=== PATIENT | female | born 1985 | race Two or more races ===

== ENCOUNTER 2019-06-16 12:04 | Outpatient (CLI) | payer MEDICAID ==
[~2019-06-16] VITALS: Ht 154.9 cm; Wt 98.0 kg
== END 2019-06-16 13:14 | disposition home or self-care (01) ==
LOC: LDOP 12:04
PROVIDERS: ATTEND Student in an Organized Health Care Education/Training Program
DX: O13.3 Gestational [pregnancy-induced] hypertension without significant proteinuria, third trimester (principal); Z3A.38 38 weeks gestation of pregnancy
CPT/HCPCS: 36415; 59025; 80053; 81001; 82570; 84156; 85025; 99201; G0463

== ENCOUNTER 2019-06-17 22:41 | Outpatient (CLI) | payer MEDICAID | END 2019-06-18 01:26 | disposition home or self-care (01) | LOC: LDOP 22:41 | PROVIDERS: ATTEND Student in an Organized Health Care Education/Training Program | DX: O24.415 Gestational diabetes mellitus in pregnancy, controlled by oral hypoglycemic drugs (principal); O13.3 Gestational [pregnancy-induced] hypertension without significant proteinuria, third trimester; Z3A.38 38 weeks gestation of pregnancy | CPT/HCPCS: 59025; 76815; 81001; 87086; 99211; G0463 ==